=== PATIENT | female | born 1935 | race Two or more races ===

== ENCOUNTER 2020-02-24 17:47 | Inpatient (IN) | payer MEDICARE ==
[~2020-02-24] VITALS: Ht 167.6 cm; Wt 99.3 kg
[2020-02-24 18:23] VITALS: BP 126/63
[2020-02-24 20:00] VITALS: BP 118/70
[2020-02-24 21:00] VITALS: BP 114/77
[2020-02-24] MEDS: BLOOD SUGAR DIAGNOSTIC STRIP TEST SCH (21:00)
[2020-02-24] MEDS ORDERED: NA PHOS,M-B/NA PHOS,DI-BA ENEMA 118ML PR PRN (22:00)
[2020-02-24] MEDS ORDERED: LACTULOSE 20G/30ML UDC PO PRN (22:00)
[2020-02-24] MEDS ORDERED: DEXTROSE 50% WATER 50ML SYRINGE IV PRN (22:15)
[2020-02-24] MEDS: ATORVASTATIN CALCIUM 10MG TABLET PO SCH (23:05)
[2020-02-24] MEDS: FAMOTIDINE 20MG TABLET PO SCH (23:05)
[2020-02-24] MEDS: INSULIN LISPRO 100 UNITS/ML SUBCUT SCH (23:36)
[2020-02-25] MEDS: BLOOD SUGAR DIAGNOSTIC STRIP TEST SCH ×4 (05:56→20:53)
[2020-02-25] MEDS: GLIPIZIDE 10MG TABLET PO SCH ×2 (05:57→06:03)
[2020-02-25] MEDS ORDERED: BLOOD SUGAR DIAGNOSTIC STRIP TEST SCH (06:30)
[2020-02-25] MEDS: INSULIN LISPRO 100 UNITS/ML SUBCUT SCH ×3 (06:32→17:32)
[2020-02-25 07:10] LABS: EOSINOPHILS % 4.7 % (0.0-5.0); HEMATOCRIT. 35.3 % (36.0-48.0); HEMOGLOBIN. 11.8 g/dL (12.0-16.0); LYMPHOCYTES % 23.9 % (20.0-50.0); MEAN CORPUSCULAR HEMOGLOBIN 31.1 pg (28.0-32.0); MEAN CORPUSCULAR VOLUME 92.8 fL (81.0-99.0); MEAN PLATELET VOLUME 7.6 fl (7.4-10.4); MONOCYTES % 7.2 % (2.0-8.0); NEUTROPHILS % 63.2 % (40.0-76.0); PLATELET 268 x1000/uL (130-400); RED BLOOD CELL COUNT 3.81 mill/uL (4.2-5.4); RED CELL DISTRIBUTION WIDTH 14.7 % (11.6-14.6)
[2020-02-25 07:13] VITALS: BP 123/59
[2020-02-25 07:26] LABS: CHLORIDE 107 mEq/L (98-107)
[2020-02-25] MEDS ORDERED: ACETAMINOPHEN 325MG TABLET PO PRN (07:45)
[2020-02-25 08:00] VITALS: BP 100/57
[2020-02-25] MEDS ORDERED: INSULIN LISPRO 100 UNITS/ML SUBCUT SCH (09:00)
[2020-02-25] MEDS ORDERED: BISACODYL 10MG SUPP PR PRN (09:00)
[2020-02-25] MEDS ORDERED: CHOLECALCIFEROL (D3) 1000 UNIT TABLET PO SCH (09:00)
[2020-02-25] MEDS: DOCUSATE SODIUM 100MG CAPSULE PO SCH ×2 (10:02→20:53)
[2020-02-25] MEDS: DILTIAZEM HCL 120MG CAPSULE CD 24HR PO SCH (10:03)
[2020-02-25] MEDS: POLYETHYLENE GLYCOL 3350 (17GM) 1 DOSE PACK PO SCH (10:04)
[2020-02-25] MEDS: ZINC OXIDE 20% OINT 30GM TOP SCH ×2 (10:04→21:20)
[2020-02-25] MEDS: APIXABAN 5 MG TABLET PO SCH ×2 (12:18→20:53)
[2020-02-25] MEDS: CHOLECALCIFEROL (D3) 1000 UNIT TABLET PO SCH (17:13)
[2020-02-25 20:00] VITALS: BP 103/64
[2020-02-25] MEDS: FAMOTIDINE 20MG TABLET PO SCH (20:53)
[2020-02-25] MEDS: ATORVASTATIN CALCIUM 10MG TABLET PO SCH (20:53)
[2020-02-26 06:11] LABS: BASOPHILS % 0.5 % (0.0-2.0); EOSINOPHILS % 3.1 % (0.0-5.0); HEMATOCRIT. 35.9 % (36.0-48.0); HEMOGLOBIN. 12.2 g/dL (12.0-16.0); LYMPHOCYTES % 18.5 % (20.0-50.0); MEAN CORPUSCULAR HEMOGLOBIN 31.8 pg (28.0-32.0); MEAN CORPUSCULAR VOLUME 93.6 fL (81.0-99.0); MEAN PLATELET VOLUME 7.9 fl (7.4-10.4); MONOCYTES % 6.2 % (2.0-8.0); NEUTROPHILS % 71.7 % (40.0-76.0); PLATELET 254 x1000/uL (130-400); RED BLOOD CELL COUNT 3.84 mill/uL (4.2-5.4); RED CELL DISTRIBUTION WIDTH 14.6 % (11.6-14.6)
[2020-02-26 06:12] LABS: CHLORIDE 106 mEq/L (98-107)
[2020-02-26] MEDS: BLOOD SUGAR DIAGNOSTIC STRIP TEST SCH ×4 (06:31→21:41)
[2020-02-26] MEDS: INSULIN LISPRO 100 UNITS/ML SUBCUT SCH ×4 (06:37→21:58)
[2020-02-26 07:12] VITALS: BP 103/64
[2020-02-26] MEDS: POLYETHYLENE GLYCOL 3350 (17GM) 1 DOSE PACK PO SCH (09:54)
[2020-02-26] MEDS: DOCUSATE SODIUM 100MG CAPSULE PO SCH ×2 (09:55→21:39)
[2020-02-26] MEDS: APIXABAN 5 MG TABLET PO SCH ×2 (09:59→21:39)
[2020-02-26] MEDS: ZINC OXIDE 20% OINT 30GM TOP SCH ×2 (10:00→21:41)
[2020-02-26] MEDS: CHOLECALCIFEROL (D3) 1000 UNIT TABLET PO SCH (10:00)
[2020-02-26] MEDS: GLIPIZIDE 10MG TABLET PO SCH (10:01)
[2020-02-26] MEDS: DILTIAZEM HCL 120MG CAPSULE CD 24HR PO SCH (10:02)
[2020-02-26 20:00] VITALS: BP 123/65
[2020-02-26] MEDS: ATORVASTATIN CALCIUM 10MG TABLET PO SCH (21:39)
[2020-02-26] MEDS: FAMOTIDINE 20MG TABLET PO SCH (21:39)
[2020-02-26] MEDS ORDERED: INSULIN GLARGINE UD 100 UNITS/ML SYR SUBCUT SCH (22:00)
[2020-02-26 23:09] VITALS: BP 109/71
[2020-02-27 00:19] VITALS: BP 123/61
[2020-02-27] MEDS: INSULIN LISPRO 100 UNITS/ML SUBCUT SCH ×4 (06:18→21:58)
[2020-02-27] MEDS: BLOOD SUGAR DIAGNOSTIC STRIP TEST SCH ×4 (06:18→21:35)
[2020-02-27 08:23] VITALS: BP 124/65
[2020-02-27] MEDS: POLYETHYLENE GLYCOL 3350 (17GM) 1 DOSE PACK PO SCH (09:00)
[2020-02-27] MEDS: GLIPIZIDE 10MG TABLET PO SCH (09:15)
[2020-02-27] MEDS: CHOLECALCIFEROL (D3) 1000 UNIT TABLET PO SCH (09:15)
[2020-02-27] MEDS: APIXABAN 5 MG TABLET PO SCH ×2 (09:15→21:34)
[2020-02-27] MEDS: DOCUSATE SODIUM 100MG CAPSULE PO SCH ×2 (09:15→21:35)
[2020-02-27] MEDS: ZINC OXIDE 20% OINT 30GM TOP SCH ×2 (09:18→21:35)
[2020-02-27] MEDS: DILTIAZEM HCL 120MG CAPSULE CD 24HR PO SCH (09:18)
[2020-02-27] MEDS: DILTIAZEM HCL 300MG CAPSULE SR 24HR PO SCH (12:10)
[2020-02-27] MEDS: ASPIRIN 81MG TABLET PO SCH (16:05)
[2020-02-27] MEDS: ATORVASTATIN CALCIUM 10MG TABLET PO SCH (21:34)
[2020-02-27] MEDS: FAMOTIDINE 20MG TABLET PO SCH (21:34)
[2020-02-27] MEDS ORDERED: INSULIN GLARGINE UD 100 UNITS/ML SYR SUBCUT SCH (22:00)
[2020-02-28] MEDS: BLOOD SUGAR DIAGNOSTIC STRIP TEST SCH ×4 (06:38→21:17)
[2020-02-28 07:04] LABS: CHLORIDE 107 mEq/L (98-107)
[2020-02-28 07:24] LABS: BASOPHILS % 0.7 % (0.0-2.0); EOSINOPHILS % 3.7 % (0.0-5.0); HEMATOCRIT. 34.9 % (36.0-48.0); HEMOGLOBIN. 11.8 g/dL (12.0-16.0); LYMPHOCYTES % 23.7 % (20.0-50.0); MEAN CORPUSCULAR HEMOGLOBIN 31.1 pg (28.0-32.0); MEAN CORPUSCULAR VOLUME 92.3 fL (81.0-99.0); MEAN PLATELET VOLUME 8.2 fl (7.4-10.4); MONOCYTES % 5.6 % (2.0-8.0); NEUTROPHILS % 66.3 % (40.0-76.0); PLATELET 276 x1000/uL (130-400); RED BLOOD CELL COUNT 3.78 mill/uL (4.2-5.4); RED CELL DISTRIBUTION WIDTH 14.1 % (11.6-14.6)
[2020-02-28] MEDS: INSULIN LISPRO 100 UNITS/ML SUBCUT SCH ×4 (07:53→21:25)
[2020-02-28 08:00] VITALS: BP 119/69
[2020-02-28] MEDS: DOCUSATE SODIUM 100MG CAPSULE PO SCH ×2 (09:45→21:14)
[2020-02-28] MEDS: CHOLECALCIFEROL (D3) 1000 UNIT TABLET PO SCH (09:46)
[2020-02-28] MEDS: APIXABAN 5 MG TABLET PO SCH ×2 (09:47→21:14)
[2020-02-28] MEDS: ASPIRIN 81MG TABLET PO SCH (09:47)
[2020-02-28] MEDS: DILTIAZEM HCL 300MG CAPSULE SR 24HR PO SCH (09:48)
[2020-02-28] MEDS: GLIPIZIDE 10MG TABLET PO SCH (09:49)
[2020-02-28] MEDS: POLYETHYLENE GLYCOL 3350 (17GM) 1 DOSE PACK PO SCH (09:50)
[2020-02-28] MEDS: ZINC OXIDE 20% OINT 30GM TOP SCH ×2 (09:54→21:14)
[2020-02-28 20:00] VITALS: BP 114/60
[2020-02-28] MEDS: FAMOTIDINE 20MG TABLET PO SCH (21:14)
[2020-02-28] MEDS: ATORVASTATIN CALCIUM 10MG TABLET PO SCH (21:14)
[2020-02-28] MEDS: INSULIN GLARGINE UD 100 UNITS/ML SYR SUBCUT SCH (21:27)
[2020-02-28] MEDS: ZOLPIDEM TARTRATE 5MG TABLET PO PRN (23:02)
[2020-02-29] MEDS: BLOOD SUGAR DIAGNOSTIC STRIP TEST SCH ×4 (06:27→20:35)
[2020-02-29] MEDS: INSULIN LISPRO 100 UNITS/ML SUBCUT SCH ×4 (06:35→20:46)
[2020-02-29 08:00] VITALS: BP 130/69
[2020-02-29] MEDS: POLYETHYLENE GLYCOL 3350 (17GM) 1 DOSE PACK PO SCH (09:00)
[2020-02-29] MEDS: ASPIRIN 81MG TABLET PO SCH (09:00)
[2020-02-29] MEDS: APIXABAN 5 MG TABLET PO SCH ×2 (09:00→20:35)
[2020-02-29] MEDS: DOCUSATE SODIUM 100MG CAPSULE PO SCH ×2 (09:00→20:35)
[2020-02-29] MEDS: GLIPIZIDE 10MG TABLET PO SCH (09:00)
[2020-02-29] MEDS: CHOLECALCIFEROL (D3) 1000 UNIT TABLET PO SCH (09:00)
[2020-02-29] MEDS: DILTIAZEM HCL 300MG CAPSULE SR 24HR PO SCH (09:00)
[2020-02-29] MEDS: ZINC OXIDE 20% OINT 30GM TOP SCH ×2 (09:00→20:35)
[2020-02-29] MEDS: CYANOCOBALAMIN 1000MCG/ML VIAL IM SCH (09:00)
[2020-02-29 15:26] LABS: CLARITY URINE TURBID (CLEAR); COLOR URINE DARK YELLOW (YELLOW); KETONES URINE NEGATIVE (NEGATIVE); LEUKOCYTE ESTERASE URINE 2+ (NEGATIVE); NITRITE URINE POSITIVE (NEGATIVE); OCCULT BLOOD URINE 1+ (NEGATIVE); PROTEIN URINE 1+ (NEGATIVE); SPECIFIC GRAVITY URINE 1.031 (1.005-1.030)
[2020-02-29 20:00] VITALS: BP 126/61
[2020-02-29] MEDS: FAMOTIDINE 20MG TABLET PO SCH (20:35)
[2020-02-29] MEDS: ATORVASTATIN CALCIUM 10MG TABLET PO SCH (20:35)
[2020-02-29] MEDS: ZOLPIDEM TARTRATE 5MG TABLET PO PRN (20:37)
[2020-02-29] MEDS: INSULIN GLARGINE UD 100 UNITS/ML SYR SUBCUT SCH (21:04)
[2020-03-01] MEDS: INSULIN LISPRO 100 UNITS/ML SUBCUT SCH ×4 (06:32→21:42)
[2020-03-01] MEDS: BLOOD SUGAR DIAGNOSTIC STRIP TEST SCH ×4 (06:32→21:27)
[2020-03-01 08:00] VITALS: BP 101/57
[2020-03-01] MEDS: GLIPIZIDE 10MG TABLET PO SCH (08:45)
[2020-03-01] MEDS: CHOLECALCIFEROL (D3) 1000 UNIT TABLET PO SCH (08:45)
[2020-03-01] MEDS: DILTIAZEM HCL 300MG CAPSULE SR 24HR PO SCH (08:45)
[2020-03-01] MEDS: ZINC OXIDE 20% OINT 30GM TOP SCH ×2 (08:45→21:30)
[2020-03-01] MEDS: ASPIRIN 81MG TABLET PO SCH (08:45)
[2020-03-01] MEDS: DOCUSATE SODIUM 100MG CAPSULE PO SCH ×2 (08:46→21:28)
[2020-03-01] MEDS: POLYETHYLENE GLYCOL 3350 (17GM) 1 DOSE PACK PO SCH (08:46)
[2020-03-01] MEDS: APIXABAN 5 MG TABLET PO SCH ×3 (12:12→21:29)
[2020-03-01] MEDS: LEVOFLOXACIN 500MG TABLET PO SCH (13:18)
[2020-03-01] MEDS: METFORMIN HCL 500MG TABLET PO SCH (17:16)
[2020-03-01 20:00] VITALS: BP 110/68
[2020-03-01] MEDS: ZOLPIDEM TARTRATE 5MG TABLET PO PRN (21:29)
[2020-03-01] MEDS: ATORVASTATIN CALCIUM 10MG TABLET PO SCH (21:29)
[2020-03-01] MEDS: FAMOTIDINE 20MG TABLET PO SCH (21:29)
[2020-03-01] MEDS: INSULIN GLARGINE UD 100 UNITS/ML SYR SUBCUT SCH (21:43)
[2020-03-02] MEDS: BLOOD SUGAR DIAGNOSTIC STRIP TEST SCH ×4 (06:26→21:39)
[2020-03-02] MEDS: INSULIN LISPRO 100 UNITS/ML SUBCUT SCH ×4 (06:29→21:42)
[2020-03-02 08:00] VITALS: BP 126/71
[2020-03-02] MEDS: CHOLECALCIFEROL (D3) 1000 UNIT TABLET PO SCH (09:21)
[2020-03-02] MEDS: DILTIAZEM HCL 300MG CAPSULE SR 24HR PO SCH (09:21)
[2020-03-02] MEDS: APIXABAN 5 MG TABLET PO SCH ×2 (09:22→21:44)
[2020-03-02] MEDS: ASPIRIN 81MG TABLET PO SCH (09:22)
[2020-03-02] MEDS: METFORMIN HCL 500MG TABLET PO SCH ×2 (09:22→16:52)
[2020-03-02] MEDS: GLIPIZIDE 10MG TABLET PO SCH (09:22)
[2020-03-02] MEDS: DOCUSATE SODIUM 100MG CAPSULE PO SCH ×2 (09:22→21:43)
[2020-03-02] MEDS: POLYETHYLENE GLYCOL 3350 (17GM) 1 DOSE PACK PO SCH (09:22)
[2020-03-02] MEDS: ZINC OXIDE 20% OINT 30GM TOP SCH ×2 (09:23→21:45)
[2020-03-02] MEDS: LEVOFLOXACIN 500MG TABLET PO SCH (11:34)
[2020-03-02 20:00] VITALS: BP 116/63
[2020-03-02] MEDS: FAMOTIDINE 20MG TABLET PO SCH (21:43)
[2020-03-02] MEDS: INSULIN GLARGINE UD 100 UNITS/ML SYR SUBCUT SCH (21:43)
[2020-03-02] MEDS: ATORVASTATIN CALCIUM 10MG TABLET PO SCH (21:44)
[2020-03-02] MEDS: ZOLPIDEM TARTRATE 5MG TABLET PO PRN (21:44)
[2020-03-02] MEDS: GLUCOSAMINE HCL PO SCH (21:48)
[2020-03-02] MEDS: METHYLSULFONYLMETHANE PO SCH (21:48)
[2020-03-03] MEDS: BLOOD SUGAR DIAGNOSTIC STRIP TEST SCH ×4 (06:19→21:28)
[2020-03-03 08:00] VITALS: BP 109/56
[2020-03-03] MEDS: INSULIN LISPRO 100 UNITS/ML SUBCUT SCH ×4 (09:00→21:00)
[2020-03-03] MEDS: METHYLSULFONYLMETHANE PO SCH ×2 (09:22→21:26)
[2020-03-03] MEDS: GLUCOSAMINE HCL PO SCH ×2 (09:22→21:26)
[2020-03-03] MEDS: DOCUSATE SODIUM 100MG CAPSULE PO SCH ×2 (09:23→21:28)
[2020-03-03] MEDS: CHOLECALCIFEROL (D3) 1000 UNIT TABLET PO SCH (09:23)
[2020-03-03] MEDS: POLYETHYLENE GLYCOL 3350 (17GM) 1 DOSE PACK PO SCH (09:23)
[2020-03-03] MEDS: APIXABAN 5 MG TABLET PO SCH ×2 (09:23→21:28)
[2020-03-03] MEDS: METFORMIN HCL 500MG TABLET PO SCH ×2 (09:23→17:13)
[2020-03-03] MEDS: GLIPIZIDE 10MG TABLET PO SCH (09:23)
[2020-03-03] MEDS: ASPIRIN 81MG TABLET PO SCH (09:23)
[2020-03-03] MEDS: ZINC OXIDE 20% OINT 30GM TOP SCH ×2 (09:24→21:28)
[2020-03-03] MEDS: DILTIAZEM HCL 300MG CAPSULE SR 24HR PO SCH (09:24)
[2020-03-03] MEDS: LEVOFLOXACIN 500MG TABLET PO SCH (11:10)
[2020-03-03 19:26] VITALS: BP 122/69
[2020-03-03] MEDS: FAMOTIDINE 20MG TABLET PO SCH (21:28)
[2020-03-03] MEDS: ZOLPIDEM TARTRATE 5MG TABLET PO PRN (21:28)
[2020-03-03] MEDS: ATORVASTATIN CALCIUM 10MG TABLET PO SCH (21:29)
[2020-03-03] MEDS: INSULIN GLARGINE UD 100 UNITS/ML SYR SUBCUT SCH (21:55)
[2020-03-04] MEDS: BLOOD SUGAR DIAGNOSTIC STRIP TEST SCH ×4 (06:16→21:24)
[2020-03-04 08:04] VITALS: BP 111/65
[2020-03-04] MEDS: ASPIRIN 81MG TABLET PO SCH (08:56)
[2020-03-04] MEDS: METFORMIN HCL 500MG TABLET PO SCH (08:56)
[2020-03-04] MEDS: DILTIAZEM HCL 300MG CAPSULE SR 24HR PO SCH (08:56)
[2020-03-04] MEDS: CHOLECALCIFEROL (D3) 1000 UNIT TABLET PO SCH (08:56)
[2020-03-04] MEDS: DOCUSATE SODIUM 100MG CAPSULE PO SCH ×2 (08:57→21:58)
[2020-03-04] MEDS: GLIPIZIDE 10MG TABLET PO SCH (08:57)
[2020-03-04] MEDS: APIXABAN 5 MG TABLET PO SCH ×2 (08:57→21:58)
[2020-03-04] MEDS: POLYETHYLENE GLYCOL 3350 (17GM) 1 DOSE PACK PO SCH (08:57)
[2020-03-04] MEDS: GLUCOSAMINE HCL PO SCH ×2 (08:58→21:59)
[2020-03-04] MEDS: ZINC OXIDE 20% OINT 30GM TOP SCH ×2 (08:58→22:40)
[2020-03-04] MEDS: METHYLSULFONYLMETHANE PO SCH ×2 (08:58→21:59)
[2020-03-04] MEDS: INSULIN LISPRO 100 UNITS/ML SUBCUT SCH ×4 (08:58→21:57)
[2020-03-04] MEDS: LEVOFLOXACIN 500MG TABLET PO SCH (10:09)
[2020-03-04] MEDS: METFORMIN HCL 850MG TABLET PO SCH (17:14)
[2020-03-04 20:00] VITALS: BP 114/61
[2020-03-04] MEDS: INSULIN GLARGINE UD 100 UNITS/ML SYR SUBCUT SCH (21:58)
[2020-03-04] MEDS: FAMOTIDINE 20MG TABLET PO SCH (21:58)
[2020-03-04] MEDS: ATORVASTATIN CALCIUM 10MG TABLET PO SCH (22:02)
[2020-03-05] MEDS: BLOOD SUGAR DIAGNOSTIC STRIP TEST SCH ×4 (06:34→21:00)
[2020-03-05 06:58] LABS: BASOPHILS % 0.6 % (0.0-2.0); EOSINOPHILS % 2.5 % (0.0-5.0); LYMPHOCYTES % 22.2 % (20.0-50.0); MEAN CORPUSCULAR HEMOGLOBIN 31.3 pg (28.0-32.0); MEAN CORPUSCULAR VOLUME 93.8 fL (81.0-99.0); MEAN PLATELET VOLUME 8.3 fl (7.4-10.4); NEUTROPHILS % 67.7 % (40.0-76.0); PLATELET 246 x1000/uL (130-400); RED BLOOD CELL COUNT 3.83 mill/uL (4.2-5.4); RED CELL DISTRIBUTION WIDTH 14.9 % (11.6-14.6)
[2020-03-05 07:50] VITALS: BP 122/59
[2020-03-05 07:53] LABS: CHLORIDE 109 mEq/L (98-107)
[2020-03-05 08:06] VITALS: BP 122/59
[2020-03-05] MEDS: CHOLECALCIFEROL (D3) 1000 UNIT TABLET PO SCH (08:39)
[2020-03-05] MEDS: METFORMIN HCL 850MG TABLET PO SCH ×2 (08:39→17:37)
[2020-03-05] MEDS: ASPIRIN 81MG TABLET PO SCH (08:39)
[2020-03-05] MEDS: DOCUSATE SODIUM 100MG CAPSULE PO SCH ×2 (08:39→20:37)
[2020-03-05] MEDS: POLYETHYLENE GLYCOL 3350 (17GM) 1 DOSE PACK PO SCH (08:39)
[2020-03-05] MEDS: APIXABAN 5 MG TABLET PO SCH ×2 (08:40→20:37)
[2020-03-05] MEDS: DILTIAZEM HCL 300MG CAPSULE SR 24HR PO SCH (08:40)
[2020-03-05] MEDS: GLIPIZIDE 10MG TABLET PO SCH (08:42)
[2020-03-05] MEDS: ZINC OXIDE 20% OINT 30GM TOP SCH ×2 (08:43→21:00)
[2020-03-05] MEDS: GLUCOSAMINE HCL PO SCH ×3 (09:00→20:38)
[2020-03-05] MEDS: INSULIN LISPRO 100 UNITS/ML SUBCUT SCH ×4 (09:00→22:20)
[2020-03-05] MEDS: METHYLSULFONYLMETHANE PO SCH ×3 (09:00→20:38)
[2020-03-05 20:00] VITALS: BP 130/70
[2020-03-05] MEDS: FAMOTIDINE 20MG TABLET PO SCH (20:37)
[2020-03-05] MEDS: ATORVASTATIN CALCIUM 10MG TABLET PO SCH (20:37)
[2020-03-05] MEDS: INSULIN GLARGINE UD 100 UNITS/ML SYR SUBCUT SCH (22:19)
[2020-03-06] MEDS: BLOOD SUGAR DIAGNOSTIC STRIP TEST SCH ×4 (05:54→21:18)
[2020-03-06] MEDS: INSULIN LISPRO 100 UNITS/ML SUBCUT SCH ×4 (06:49→21:00)
[2020-03-06 07:55] VITALS: BP 142/55
[2020-03-06] MEDS: ASPIRIN 81MG TABLET PO SCH (09:20)
[2020-03-06] MEDS: METFORMIN HCL 850MG TABLET PO SCH ×2 (09:20→17:19)
[2020-03-06] MEDS: GLIPIZIDE 10MG TABLET PO SCH (09:20)
[2020-03-06] MEDS: DOCUSATE SODIUM 100MG CAPSULE PO SCH ×2 (09:20→21:18)
[2020-03-06] MEDS: DILTIAZEM HCL 300MG CAPSULE SR 24HR PO SCH (09:20)
[2020-03-06] MEDS: POLYETHYLENE GLYCOL 3350 (17GM) 1 DOSE PACK PO SCH (09:28)
[2020-03-06] MEDS: CHOLECALCIFEROL (D3) 1000 UNIT TABLET PO SCH (09:28)
[2020-03-06] MEDS: METHYLSULFONYLMETHANE PO SCH ×2 (09:30→21:18)
[2020-03-06] MEDS: GLUCOSAMINE HCL PO SCH ×2 (09:30→21:18)
[2020-03-06] MEDS: ZINC OXIDE 20% OINT 30GM TOP SCH ×3 (09:31→22:49)
[2020-03-06] MEDS: APIXABAN 5 MG TABLET PO SCH ×2 (10:16→22:49)
[2020-03-06 20:00] VITALS: BP 103/61
[2020-03-06] MEDS: FAMOTIDINE 20MG TABLET PO SCH (21:17)
[2020-03-06] MEDS: ATORVASTATIN CALCIUM 10MG TABLET PO SCH (21:25)
[2020-03-06] MEDS: INSULIN GLARGINE UD 100 UNITS/ML SYR SUBCUT SCH (22:15)
[2020-03-07] MEDS ORDERED: GLIPIZIDE 5MG TABLET PO SCH (06:00)
[2020-03-07] MEDS: INSULIN LISPRO 100 UNITS/ML SUBCUT SCH ×2 (06:15→12:47)
[2020-03-07] MEDS: BLOOD SUGAR DIAGNOSTIC STRIP TEST SCH ×2 (06:15→11:15)
[2020-03-07] MEDS: CYANOCOBALAMIN 1000MCG/ML VIAL IM SCH (08:00)
[2020-03-07] MEDS: APIXABAN 5 MG TABLET PO SCH (08:01)
[2020-03-07] MEDS: CHOLECALCIFEROL (D3) 1000 UNIT TABLET PO SCH (08:02)
[2020-03-07] MEDS: DOCUSATE SODIUM 100MG CAPSULE PO SCH (08:02)
[2020-03-07] MEDS: METFORMIN HCL 850MG TABLET PO SCH (08:04)
[2020-03-07] MEDS: DILTIAZEM HCL 300MG CAPSULE SR 24HR PO SCH (08:04)
[2020-03-07] MEDS: ASPIRIN 81MG TABLET PO SCH (08:04)
[2020-03-07] MEDS: POLYETHYLENE GLYCOL 3350 (17GM) 1 DOSE PACK PO SCH (08:04)
[2020-03-07] MEDS: GLUCOSAMINE HCL PO SCH (08:06)
[2020-03-07] MEDS: METHYLSULFONYLMETHANE PO SCH (08:06)
[2020-03-07 08:17] VITALS: BP 97/54
[2020-03-07 11:31] VITALS: BP 97/54
== END 2020-03-07 13:40 | disposition home health service (06) | DRG 535 ==
PROVIDERS: ADMIT Physical Medicine & Rehabilitation Spinal Cord Injury Medicine; ATTEND Internal Medicine
DX: S32.502A Unspecified fracture of left pubis, initial encounter for closed fracture (principal); G93.41 Metabolic encephalopathy; A41.9 Sepsis, unspecified organism; E46 Unspecified protein-calorie malnutrition; I42.9 Cardiomyopathy, unspecified; I48.19 Other persistent atrial fibrillation; I50.32 Chronic diastolic (congestive) heart failure; N39.0 Urinary tract infection, site not specified; Y99.8 Other external cause status; E11.9 Type 2 diabetes mellitus without complications; E53.8 Deficiency of other specified B group vitamins; E55.9 Vitamin D deficiency, unspecified; E66.9 Obesity, unspecified; E78.5 Hyperlipidemia, unspecified; G47.30 Sleep apnea, unspecified; I11.0 Hypertensive heart disease with heart failure; I25.10 Atherosclerotic heart disease of native coronary artery without angina pectoris; B96.89 Other specified bacterial agents as the cause of diseases classified elsewhere; I27.81 Cor pulmonale (chronic); G47.33 Obstructive sleep apnea (adult) (pediatric); G89.29 Other chronic pain; R26.9 Unspecified abnormalities of gait and mobility; Z96.652 Presence of left artificial knee joint; J44.9 Chronic obstructive pulmonary disease, unspecified; K59.00 Constipation, unspecified; M19.90 Unspecified osteoarthritis, unspecified site; W18.39XA Other fall on same level, initial encounter; R53.81 Other malaise; Y93.89 Activity, other specified; Y92.89 Other specified places as the place of occurrence of the external cause; Z79.01 Long term (current) use of anticoagulants; Z79.4 Long term (current) use of insulin; Z79.899 Other long term (current) drug therapy; I25.2 Old myocardial infarction; Z82.3 Family history of stroke; Z82.49 Family history of ischemic heart disease and other diseases of the circulatory system; Z83.3 Family history of diabetes mellitus; Z86.711 Personal history of pulmonary embolism; Z86.718 Personal history of other venous thrombosis and embolism; Z90.710 Acquired absence of both cervix and uterus; Z90.49 Acquired absence of other specified parts of digestive tract; Z71.3 Dietary counseling and surveillance
CPT/HCPCS: 36415; 71046; 80048; 80053; 81003; 82962; 83036; 83735; 84134; 85025; 87070; 87077; 87102; 87186; 92523; 92610; 93005; 93306; 93970; 97110; 97116; 97162; 97166; 97530; 97535; J1815; J3420